=== PATIENT | female | born 1995 | race American Indian/Alaskan Native ===

== ENCOUNTER 2019-01-11 12:02 | Emergency (ER) | payer MEDICAID ==
--- NOTE | 2019-01-11 12:27 | Event Note ---
ED Screening Note ED Screening Note: vomiting and diarrhea stooling on self gen abd pain just finished menses ambulatory This initial assessment/diagnostic orders/clinical plan/treatment(s) is/are subject to change based on patients health status, clinical progression and re- assessment by fellow clinical providers in the ED. Further treatment and workup at subsequent clinical providers discretion. Patient/guardian urged not to elope from the ED as their condition may be serious if not clinically assessed and managed. Initial orders include: ua/preg basic labs
[2019-01-11 12:58] LABS: Bacteria,Urine 1+ /HPF (Negative); Bilirubin,Urine NEG (Negative); Blood,Urine SM (Negative); Color,Urine Yellow (Yellow); Mucus,Urine 2+ /HPF; Urobilinogen,Urine < 2.0 mg/dL (<2.0)
[2019-01-11 12:59] LABS: HCG Qualitative,Urine Negative (Negative)
--- NOTE | 2019-01-11 13:04 | Emergency Department Report ---
ED N/V/D HPI - General Chief complaint: Nausea/Vomiting/Diarrhea Stated complaint: VOMIT/DIARRHEA/FEVER Time Seen by Provider: 01/11/19 12:25 Source: patient Mode of arrival: Ambulatory Limitations: No Limitations - History of Present Illness Initial comments: Jan is a 23-year-old healthy female who presents with runny nose mild cough and diarrhea for the past 2 days. She is concern for possible food poisoning. Mild symptoms. No sick contacts. No fever. Vomiting has resolved. MD complaint: nausea, vomiting, diarrhea -: Gradual, days(s) (2) Description of Vomiting: food contents, watery Description of Diarrhea: water Associated Abdominal Pain: No Severity: mild Consistency: intermittent Improves with: none Worsens with: none Context: possible food poisoning Associated Symptoms: cough - Related Data Allergies Allergy/AdvReac Type Severity Reaction Status Date / Time acetaminophen [From Percocet] Allergy Itching Verified 01/11/19 12:05 oxycodone [From Percocet] Allergy Itching Verified 01/11/19 12:05 ED Review of Systems ROS: Stated complaint: VOMIT/DIARRHEA/FEVER Other details as noted in HPI Comment: All other systems reviewed and negative Constitutional: malaise. denies: chills, fever ENT: denies: ear pain, throat pain Gastrointestinal: nausea, vomiting, diarrhea. denies: abdominal pain ED Past Medical Hx - Past Medical History Previous Medical History?: No - Surgical History Past Surgical History?: No - Social History Smoking Status: Never Smoker Substance Use Type: None ED Physical Exam - General Limitations: No Limitations General appearance: alert, in no apparent distress - Head Head exam: Present: atraumatic, normocephalic - Eye Eye exam: Present: normal appearance - ENT ENT exam: Present: mucous membranes moist - Neck Neck exam: Present: normal inspection - Respiratory Respiratory exam: Present: normal lung sounds bilaterally. Absent: respiratory distress, wheezes, rales, rhonchi - Cardiovascular Cardiovascular Exam: Present: regular rate, normal rhythm, normal heart sounds. Absent: systolic murmur, diastolic murmur, rubs, gallop - GI/Abdominal GI/Abdominal exam: Present: soft, normal bowel sounds. Absent: tenderness, guarding, rebound - Extremities Exam Extremities exam: Present: normal inspection - Back Exam Back exam: Present: normal inspection - Neurological Exam Neurological exam: Present: alert, oriented X3 - Psychiatric Psychiatric exam: Present: normal affect, normal mood - Skin Skin exam: Present: warm, dry, intact, normal color. Absent: rash ED Course Vital Signs 01/11/19 12:24 Temperature 97.9 F Pulse Rate 94 H Respiratory 18 Rate Blood Pressure 114/87 O2 Sat by Pulse 99 Oximetry ED Medical Decision Making - Lab Data Laboratory Results - last 24 hr 01/11/19 12:41 Urine Color Yellow Urine Turbidity Hazy Urine pH 5.0 Ur Specific [place] 1.035 H Urine Protein 30 mg/dl Urine Glucose (UA) Neg Urine Ketones Neg Urine Blood Sm Urine Nitrite Neg Urine Bilirubin Neg Urine Urobilinogen < 2.0 Ur Leukocyte Esterase Neg Urine WBC (Auto) 4.0 Urine RBC (Auto) 9.0 U Epithel Cells (Auto) 8.0 Urine Bacteria (Auto) 1+ Urine Mucus 2+ Urine HCG, Qual Negative - Medical Decision Making Jan has viral syndrome versus food poisoning recommended rest hydration supportive care at home. No evidence of sepsis or peritonitis. She appears well. Critical care attestation.: If time is entered above; I have spent that time in minutes in the direct care of this critically ill patient, excluding procedure time. ED Disposition Clinical Impression: Viral syndrome Disposition: DC-01 TO HOME OR SELFCARE Is pt being admited?: No Does the pt Need Aspirin: No Condition: Stable Instructions: Gastroenteritis (ED) Referrals: ELIGIO COWAN MD [Primary Care Provider] - 3-5 Days Forms: Work/School Release Form(ED)
[2019-01-11 13:28] VITALS: BP 116/84
== END 2019-01-11 13:27 | disposition home or self-care (01) ==
LOC: ED 12:02
DX: B34.9 Viral infection, unspecified (principal); Z88.6 Allergy status to analgesic agent; Z88.5 Allergy status to narcotic agent
CPT/HCPCS: 81001; 81025

== ENCOUNTER 2019-11-25 20:09 | Outpatient (CLI) | payer MEDICAID ==
[2019-11-25] MEDS ORDERED: LACTATED RINGERS 1,000 ML IV ONE (21:55)
[2019-11-25 22:29] LABS: Bacteria,Urine 1+ /HPF (Negative); Bilirubin,Urine NEG (Negative); Blood,Urine NEG (Negative); Color,Urine Yellow (Yellow); Hyaline Casts,Urine 1 /LPF; Mucus,Urine 2+ /HPF; Urobilinogen,Urine < 2.0 mg/dL (<2.0)
[2019-11-25] MEDS ORDERED: cefTRIAXone/NS 2 GM/100 ML 2 GM/100 ML BAG IV ONE (23:00)
[2019-11-25 23:25] VITALS: BP 144/71
[2019-11-25] MEDS: TERBUTALINE 1 MG/1 ML INJ SUB-Q SCH ×2 (23:26→23:50)
== END 2019-11-26 01:22 | disposition home or self-care (01) ==
LOC: TRG 20:09 → APU 20:11 → TRG 11-26 01:22
PROVIDERS: ATTEND Obstetrics & Gynecology
DX: O62.9 Abnormality of forces of labor, unspecified (principal); O13.3 Gestational [pregnancy-induced] hypertension without significant proteinuria, third trimester; Z3A.33 33 weeks gestation of pregnancy
CPT/HCPCS: 59025; 81001; 87086; 96361; 96365; 96372; J0696; J3105; J7120; 96360

== ENCOUNTER 2021-12-29 19:28 | Emergency (ER) | payer MEDICAID ==
[2021-12-29] MEDS ORDERED: diphenhydrAMINE 50 MG/ML VIAL IV ONE (23:14)
[2021-12-29] MEDS ORDERED: SODIUM CHLORIDE 0.9% 1000 ML 1,000 ML IV ONE (23:14)
[2021-12-29] MEDS ORDERED: ACETAMINOPHEN 500 MG TAB PO ONE (23:14)
[2021-12-29] MEDS ORDERED: FAMOTIDINE 20 MG/2 ML INJ IV ONE (23:14)
[2021-12-29] MEDS ORDERED: METOCLOPRAMIDE 10 MG/2 ML INJ IV ONE (23:14)
[2021-12-29 23:41] LABS: Basophils % (Auto) 0.3 % (0.0-1.8); Eosinophils # (Auto) 0.1 K/mm3 (0.0-0.4); Eosinophils % (Auto) 1.8 % (0.0-4.3); Hematocrit 36.2 % (30.3-42.9); Hemoglobin 11.7 gm/dl (10.1-14.3); Lymphocytes # (Auto) 1.7 K/mm3 (1.2-5.4); Lymphocytes % (Auto) 25.3 % (13.4-35.0); Mean Corpuscular HGB Conc 32 % (30-34); Mean Corpuscular Volume 75 fl (79-97); Monocytes % (Auto) 14.2 % (0.0-7.3); Platelet Count 248 K/mm3 (140-440); Red Blood Count 4.85 M/mm3 (3.65-5.03)
[2021-12-29 23:44] LABS: Bilirubin,Urine Negative (Negative); Color,Urine Yellow (Yellow)
[2021-12-29 23:45] LABS: Blood,Urine Negative (Negative); PH,Urine 6.5 (5.0-7.0); Urobilinogen,Urine 0.2 mg/dL (<2.0)
[2021-12-29 23:48] LABS: Mucus,Urine 3+ /HPF; WBC,Urine < 1.0 /HPF (0.0-6.0)
[2021-12-29 23:55] LABS: Alanine Aminotransferase 19 units/L (7-56); Albumin 3.5 g/dL (3.9-5); BUN/Creatinine Ratio 7; Blood Urea Nitrogen 4 mg/dL (7-17); Calcium 9.2 mg/dL (8.4-10.2); Hemolysis Index 66
--- NOTE | 2021-12-30 01:16 | Ultrasound Report ---
ULTRASOUND OBSTETRIC INDICATION: Pelvic pain. TECHNIQUE: Transabdominal. COMPARISON: None available. FINDINGS: GESTATIONAL SAC: Well-defined oval shape and intrauterine in location. YOLK SAC: No significant abnormality. EMBRYO/FETUS: No significant abnormality. - [place]-Rump Length = 1.2 cm = 7 weeks, 2 day(s). - Heart Rate = 172 beats per minute. ADNEXA: No significant abnormality. FREE FLUID: None. ADDITIONAL FINDINGS: None. IMPRESSION: 1. Single, living intrauterine with estimated sonographic age of 7 weeks, 2 day(s). 2. No significant abnormality. Signer Name: Tam Ornelas MD Signed: 12/30/2021 1:11 AM Workstation Name: [id number]
--- NOTE | 2021-12-30 03:09 | Emergency Department Report ---
ED N/V/D HPI - General Chief complaint: Nausea/Vomiting/Diarrhea Stated complaint: NAUSEA AND PAIN IN HIPS 14 WEEKS PREG Source: patient Mode of arrival: Ambulatory Limitations: No Limitations - History of Present Illness Initial comments: Patient is a A0 26-year-old -[place]ym[place] female with no past medical history was approximately 8 weeks gestation presents to the ED with complaint of acute onset persistent intractable nausea and vomiting for the last 1 week, worse in the last 3 days. Patient also complains of lower abdominal pain for the last 1 week. Patient states that she tried to drink fluids and eat food but was unable to keep anything down. Patient states that she is currently on Diclegis for vomiting but that the medicine has not been able to help. Patient denies dysuria, urinary frequency and urgency, vaginal bleeding, vaginal discharge, fever, chills, cough, diarrhea, chest pain or shortness of breath, headache, dizziness or lightheadedness, and syncope. MD complaint: nausea, vomiting, abdominal pain (lower ), other (Approximately 8 weks gestation) -: week(s) (1) Description of Vomiting: food contents, watery, bilious Associated Abdominal Pain: Yes (Diffuse lower) Location: diffuse Radiation: none Severity: moderate Pain Scale: 6 Quality: cramping, dull Consistency: constant Improves with: none Worsens with: vomiting Context: other (Hyperemesis gravidarum) Associated Symptoms: denies other symptoms, myalgias, loss of appetite, malaise, nausea/vomiting. denies: chest pain, cough, diaphoresis, fever/chills, headaches, rash, dysuria, shortness of breath, syncope, weakness - Related Data Previous Rx's Medication Instructions Recorded Last Taken Type Ferrous Sulfate [Feosol 325 MG tab] 325 mg PO BID #60 tablet 12/06/19 Unknown Rx HYDROcodone/APAP 5-325 [[place] 1 each PO Q6HR PRN #40 tablet 12/06/19 Unknown Rx 5/325] Ibuprofen [Motrin] 800 mg PO Q8HR PRN #30 tablet 12/06/19 Unknown Rx labetaloL [Labetalol 100mg TAB] 100 mg PO BID #60 tablet 12/08/19 Unknown Rx Acetaminophen [Tylenol] 500 mg PO Q6HR PRN #30 tablet 12/30/21 Unknown Rx Metoclopramide [Reglan] 10 mg PO Q6H PRN #30 tab 12/30/21 Unknown Rx Promethazine [Phenergan] 25 mg SD Q6HR PRN #20 supp.rect 12/30/21 Unknown Rx Allergies Allergy/AdvReac Type Severity Reaction Status Date / Time oxycodone [From Percocet] Allergy Itching Verified 01/11/19 12:05 ED Review of Systems ROS: Stated complaint: NAUSEA AND PAIN IN HIPS 14 WEEKS PREG Other details as noted in HPI Constitutional: denies: chills, fever Eyes: denies: eye pain, eye discharge, vision change ENT: denies: ear pain, throat pain Respiratory: denies: cough, shortness of breath, wheezing Cardiovascular: denies: chest pain, palpitations Endocrine: no symptoms reported Gastrointestinal: abdominal pain, nausea, vomiting. denies: diarrhea Genitourinary: denies: urgency, dysuria, discharge Musculoskeletal: denies: back pain, joint swelling, arthralgia Skin: denies: rash, lesions Neurological: denies: headache, weakness, paresthesias Psychiatric: denies: anxiety, depression Hematological/Lymphatic: denies: easy bleeding, easy bruising ED Past Medical Hx - Past Medical History Hx Hypertension: Yes (Pre-e) Hx Diabetes: No Hx Deep Vein Thrombosis: No Hx Renal Disease: No Hx Sickle Cell Disease: No Hx Seizures: No Hx Asthma: No Hx HIV: No - Surgical History Additional Surgical History: - Social History Smoking Status: Former Smoker - Medications Home Medications: Home Medications Medication Instructions Recorded Confirmed Last Taken Type Ferrous Sulfate [Feosol 325 MG tab] 325 mg PO BID #60 tablet 12/06/19 Unknown Rx HYDROcodone/APAP 5-325 [[place] 1 each PO Q6HR PRN #40 tablet 12/06/19 Unknown Rx 5/325] Ibuprofen [Motrin] 800 mg PO Q8HR PRN #30 tablet 12/06/19 Unknown Rx labetaloL [Labetalol 100mg TAB] 100 mg PO BID #60 tablet 12/08/19 Unknown Rx Acetaminophen [Tylenol] 500 mg PO Q6HR PRN #30 tablet 12/30/21 Unknown Rx Metoclopramide [Reglan] 10 mg PO Q6H PRN #30 tab 12/30/21 Unknown Rx Promethazine [Phenergan] 25 mg SD Q6HR PRN #20 supp.rect 12/30/21 Unknown Rx ED Physical Exam - General Limitations: No Limitations General appearance: alert, in no apparent distress - Head Head exam: Present: atraumatic, normocephalic, normal inspection - Eye Eye exam: Present: normal appearance, PERRL, EOMI Pupils: Present: normal accommodation - ENT ENT exam: Present: normal exam, normal orophraynx, mucous membranes moist, TM's normal bilaterally, normal external ear exam - Neck Neck exam: Present: normal inspection, full ROM. Absent: tenderness - Respiratory Respiratory exam: Present: normal lung sounds bilaterally. Absent: respiratory distress, wheezes, rales, rhonchi, chest wall tenderness, accessory muscle use, prolonged expiratory - Cardiovascular Cardiovascular Exam: Present: normal rhythm, tachycardia, normal heart sounds. Absent: systolic murmur, diastolic murmur, rubs, gallop - GI/Abdominal GI/Abdominal exam: Present: soft, normal bowel sounds. Absent: tenderness, guarding, rebound, hyperactive bowel sounds, hypoactive bowel sounds, organomegaly, mass - Extremities Exam Extremities exam: Present: normal inspection, full ROM, normal capillary refill. Absent: tenderness, pedal edema, joint swelling, calf tenderness - Back Exam Back exam: Present: normal inspection, full ROM. Absent: tenderness, CVA tenderness (R), CVA tenderness (L), muscle spasm, paraspinal tenderness, vertebral tenderness - Neurological Exam Neurological exam: Present: alert, oriented X3, CN II-XII intact, normal gait, reflexes normal - Psychiatric Psychiatric exam: Present: normal affect, normal mood - Skin Skin exam: Present: warm, dry, intact, normal color. Absent: rash ED Course Vital Signs 12/29/21 19:40 Temperature 99.7 F H Pulse Rate 104 H Respiratory 20 Rate Blood Pressure 140/93 O2 Sat by Pulse 99 Oximetry ED Medical Decision Making - Lab Data Result diagrams: 12/29/21 23:23 12/29/21 23:23 - Radiology Data Radiology results: report reviewed, image reviewed [facility] [address] [place] [address] Ultrasound Report Signed Patient: JEANMARIE PONCE MR#: [id number] : 1995 Acct:[id number] Age/Sex: 26 / F ADM Date: 12/29/21 Loc: ED Attending Dr: Ordering Physician: GELY WILLSON Date of Service: 12/29/21 Procedure(s): US OB >= 14 weeks Fetus Accession Number(s): [id number] cc: GELY WILLSON ULTRASOUND OBSTETRIC INDICATION: Pelvic pain. TECHNIQUE: Transabdominal. COMPARISON: None available. FINDINGS: GESTATIONAL SAC: Well-defined oval shape and intrauterine in location. YOLK SAC: No significant abnormality. EMBRYO/FETUS: No significant abnormality. - [place]-Rump Length = 1.2 cm = 7 weeks, 2 day(s). - Heart Rate = 172 beats per minute. ADNEXA: No significant abnormality. FREE FLUID: None. ADDITIONAL FINDINGS: None. IMPRESSION: 1. Single, living intrauterine with estimated sonographic age of 7 weeks, 2 day(s). 2. No significant abnormality. Signer Name: Tam Ornelas MD Signed: 12/30/2021 1:11 AM Workstation Name: [id number] Transcribed By: [place] Dictated By: Tam Ornelas MD Electronically Authenticated By: Tam Ornelas MD Signed Date/Time: 12/30/21110 DD/ 9 TD/TT: Print Cancel - Medical Decision Making This is a A0 26-year-old -[place] female with no past medical history was approximately 8 weeks gestation presents to the ED with complaint of acute onset persistent intractable nausea and vomiting for the last 1 week, worse in the last 3 days. Patient also complains of lower abdominal pain for the last 1 week. Patient states that she tried to drink fluids and eat food but was unable to keep anything down. Patient states that she is currently on Diclegis for vomiting but that the medicine has not been able to help. In the ED, patient is alert and oriented x3 and is not in any distress. Patient is hemodynamically stable. Patient was treated for nausea and vomiting, also received normal saline 1 L IV bolus x1 as well as antacids and pain medications. On reevaluation, patient's pain is well controlled medication. Lab test results were reviewed and are all nonactionable. Transvaginal ultrasound showed a single living intrauterine of approximately 7 weeks and 2 days with a heart rate of 172 bpm. On reevaluation, patient felt better, patient passed oral fluid challenge in the ED. Patient was discharged home on medications for nausea and vomiting and advised to follow-up with her primary care physician or [employer] physician in 5 to 7 days for reevaluation or return to the ED immediately if symptoms get worse. - Differential Diagnosis Hyperemesis; dehydration; UTI; ovarian cyst; gastroenteritis; Critical care attestation.: If time is entered above; I have spent that time in minutes in the direct care of this critically ill patient, excluding procedure time. ED Disposition Clinical Impression: Hyperemesis gravidarum, Nausea and vomiting during prior to 22 weeks gestation, Abdominal pain during in first trimester Disposition: HOME / SELF CARE / HOMELESS Is pt being admited?: No Does the pt Need Aspirin: No Condition: Stable Instructions: Hyperemesis Gravidarum, Nausea and Vomiting, Adult, [id number], Abdominal Pain During , [id number] Additional Instructions: Follow-up test results were reviewed and are all nonactionable. Transvaginal ultrasound showed a single live intrauterine of approximately 7 weeks and 2 days with a heart tone of 172 bpm. Therefore take medication as advised, drink plenty of fluids, follow-up with your [facility] [facility] physician in 5 to 7 days for reevaluation. Return to the ED immediately if symptoms get worse. Prescriptions: Acetaminophen [Tylenol] 500 mg PO Q6HR PRN #30 tablet PRN Reason: Pain , Severe (7-10) Promethazine [Phenergan] 25 mg SD Q6HR PRN #20 supp.rect PRN Reason: Nausea Metoclopramide [Reglan] 10 mg PO Q6H PRN #30 tab PRN Reason: Nausea Referrals: JHONATAN CHAPARRO MD [Staff Physician] - 3-5 Days Time of Disposition: 03:07 Print Language: JAPANESE
[2021-12-30 03:34] VITALS: BP 143/71
== END 2021-12-30 03:57 | disposition home or self-care (01) ==
LOC: ED 19:28
DX: O21.0 Mild hyperemesis gravidarum (principal); O21.9 Vomiting of pregnancy, unspecified; O26.891 Other specified pregnancy related conditions, first trimester; Z87.891 Personal history of nicotine dependence
CPT/HCPCS: 36415; 76805; 80053; 81001; 84702; 85025; 96361; 96374; 96375; 99284; J1200; J2765; J3490; J7030